=== PATIENT | female | born 1955 | race Caucasian/White ===

== ENCOUNTER 2017-11-02 16:50 | Emergency (ER) | payer OTHER ==
[~2017-11-02] VITALS: Ht 162.6 cm; Wt 51.7 kg
[~2017-11-02 16:50] MED LIST: ALBU8.5H8; ASPI81TA31 PO; COREG PO; DIVA250T4 PO; HYDR-3980; LAMO100T2 PO; LORA-259 PO; PREG100C
--- NOTE | 2017-11-02 20:17 | NUR ---
Patient discharged to home in stable conditon. Written and verbal after care instructions given. Patient verbalizes understanding of instructions.
== END 2017-11-02 20:18 | disposition home or self-care (01) ==
LOC: ER 16:51
DX: S70.12XA Contusion of left thigh, initial encounter (principal); X58.XXXA Exposure to other specified factors, initial encounter; Y93.89 Activity, other specified; Y92.89 Other specified places as the place of occurrence of the external cause; Y99.8 Other external cause status; Z79.82 Long term (current) use of aspirin; Z88.2 Allergy status to sulfonamides; Z95.1 Presence of aortocoronary bypass graft; Z79.899 Other long term (current) drug therapy
CPT/HCPCS: 99281; A4663

== ENCOUNTER 2022-01-21 11:24 | Emergency (ER) | payer MEDICARE, OTHER ==
[~2022-01-21] VITALS: Ht 162.6 cm; Wt 54.4 kg
[2022-01-21 13:05] LABS: *BILIRUBIN,URIN NEGATIVE (NEGATIVE); *BLOOD, URINE NEGATIVE (NEGATIVE); *CLARITY,URINE CLEAR (CLEAR); *COLOR,URINE YELLOW (YELLOW); *KETONES,URINE NEGATIVE (NEGATIVE); *UROBILINOGEN,URINE 0.2 E.U./dl (NORMAL); LEUKOCYTE ESTERASE ,URINE NEGATIVE (NEGATIVE); NITRITE, URINE NEGATIVE (NEGATIVE); UGLUCOSE NEGATIVE (NEGATIVE)
[2022-01-21 13:06] LABS: HEMATOCRIT 40.7 % (31.2-41.9); MEAN CORPUSCULAR HEMOGLOBIN 30.2 uug (24.7-32.8); MEAN CORPUSCULAR VOLUME 91.1 fL (75.5-95.3); PLATELET COUNT (AUTO) 163 K/uL (179-408)
[2022-01-21 13:52] LABS: CREATININE 0.9 mg/dL (0.6-1.3); POTASSIUM 4.4 mmol/L (3.5-5.1)
[2022-01-21 13:58] LABS: BILIRUBIN,TOTAL 0.3 mg/dL (0.2-1.0); TOTAL PROTEIN, SERUM 6.3 g/dL (6.4-8.2)
--- NOTE | 2022-01-21 14:08 | NUR ---
Patient discharged to home in stable condition. Written and verbal after care instructions given. Patient verbalizes understanding of instructions. Stressed follow up or return to ER for worsening s/s.
== END 2022-01-21 14:10 | disposition home or self-care (01) ==
LOC: ER 11:24
DX: S50.11XA Contusion of right forearm, initial encounter (principal); J44.9 Chronic obstructive pulmonary disease, unspecified; Z95.1 Presence of aortocoronary bypass graft; Z88.2 Allergy status to sulfonamides; Z79.82 Long term (current) use of aspirin; Z79.899 Other long term (current) drug therapy; W06.XXXA Fall from bed, initial encounter; Y93.89 Activity, other specified; Y92.89 Other specified places as the place of occurrence of the external cause; Y99.8 Other external cause status
CPT/HCPCS: 36415; 73090; 73110; 85025; 86900; 86901; A4663

== ENCOUNTER 2022-02-16 06:08 | Inpatient (IN) | payer MEDICARE, OTHER ==
[~2022-02-16] VITALS: Ht 162.6 cm; Wt 50.0 kg
--- NOTE | 2022-02-16 06:30 | NUR ---
pt in room 4a states she fell down yesterday and c/o rib pain. Dr. Sood at bedside for MSE. pt with spo2 88 percent placed on 2 liters and then increased to 4 liters nc.
[2022-02-16] MEDS ORDERED: PREG100C PO (06:43)
[2022-02-16] MEDS ORDERED: HYDR-3980 PO (06:43)
[2022-02-16] MEDS ORDERED: ALBU6.7H9 IH (06:43)
[2022-02-16 07:11] LABS: HEMATOCRIT 40.3 % (31.2-41.9); MEAN CORPUSCULAR HEMOGLOBIN 30.3 uug (24.7-32.8); MEAN CORPUSCULAR VOLUME 90.6 fL (75.5-95.3); PLATELET COUNT (AUTO) 186 K/uL (179-408)
[2022-02-16 07:14] LABS: CREATININE 0.8 mg/dL (0.6-1.3); POTASSIUM 3.8 mmol/L (3.5-5.1)
[2022-02-16 07:22] LABS: BILIRUBIN,TOTAL 0.3 mg/dL (0.2-1.0); MAGNESIUM 2.1 mg/dL (1.8-2.4); TOTAL PROTEIN, SERUM 6.3 g/dL (6.4-8.2)
[2022-02-16] MEDS ORDERED: MORPHINE SULFATE 2 MG/1 ML DISP.SYRIN IV ONE (07:45)
[2022-02-16] MEDS ORDERED: KETOROLAC TROMETHAMINE 30 MG INJ IVP ONE (07:45)
[2022-02-16] MEDS ORDERED: KETOROLAC TROMETHAMINE 30 MG INJ ONE (07:50)
[2022-02-16] MEDS ORDERED: MORPHINE SULFATE 2 MG/1 ML DISP.SYRIN ONE (07:51)
--- NOTE | 2022-02-16 08:25 | NUR ---
Pt out of ER for CT scan.
[2022-02-16 08:28] LABS: CREATININE 0.8 mg/dL (0.6-1.3); POTASSIUM 3.8 mmol/L (3.5-5.1)
[2022-02-16 08:34] LABS: BILIRUBIN,DIRECT 0.1 mg/dL (0.0-0.2); BILIRUBIN,TOTAL 0.3 mg/dL (0.2-1.0); TOTAL PROTEIN, SERUM 6.4 g/dL (6.4-8.2)
--- NOTE | 2022-02-16 08:55 | NUR ---
Pt back from Ct scan, states rib pain is better but not gone.
[2022-02-16] MEDS ORDERED: levoFLOXacin 750 MG/D5W 150 ML PIGGYBACK IV ONE (09:30)
[2022-02-16] MEDS ORDERED: levoFLOXacin 750MG/D5W 150 ML IV ONE (09:39)
--- NOTE | 2022-02-16 10:17 | NUR ---
Patient is resting comfortably in bed with eyes closed, NAD noted.
[2022-02-16] MEDS ORDERED: LORAZEPAM 1 MG TABLET PO PRN (11:15)
[2022-02-16] MEDS ORDERED: DIVALPROEX 250 MG TABLET.DR PO ONE (11:51)
[2022-02-16] MEDS: DIVALPROEX 250 MG TABLET.DR PO SCH ×2 (11:56→21:27)
[2022-02-16] MEDS: LAMOTRIGINE 100 MG TABLET PO SCH ×2 (11:56→17:03)
--- NOTE | 2022-02-16 11:59 | NUR ---
Lunch provided, pt is eating, no assisstance needed, HOB elevated to 90 degrees.
[2022-02-16] MEDS ORDERED: PREGABALIN 100 MG CAPSULE ONE ×2 (12:10→17:01)
[2022-02-16] MEDS: PREGABALIN 100 MG CAPSULE PO SCH ×2 (12:13→17:03)
[2022-02-16] MEDS ORDERED: MAGNESIUM HYDROXIDE 30 ML LIQUID UDC PO PRN (13:15)
[2022-02-16] MEDS ORDERED: ONDANSETRON 4 MG/2 ML VIAL IV PRN (13:15)
[2022-02-16] MEDS ORDERED: REMEDY ESSENTIAL ZINC PASTE 113 GM TP PRN (13:15)
[2022-02-16] MEDS ORDERED: ACETAMINOPHEN 325 MG TABLET PO PRN (13:15)
[2022-02-16] MEDS ORDERED: LORAZEPAM 1 MG TABLET ONE (13:17)
--- NOTE | 2022-02-16 13:20 | NUR ---
Pt c/o anxiety, stating takes Ativan.
--- NOTE | 2022-02-16 13:57 | NUR ---
Pt states Ativan worked and not anxious any longer.
[2022-02-16] MEDS: CEFTRIAXONE 2 G in IV DEXTROSE 5% 100 ML IV SCH (14:00)
[2022-02-16] MEDS ORDERED: METRONIDAZOLE 500 MG/NS 100ML 100 ML IV ONE ×3 (14:51→21:27)
[2022-02-16] MEDS: METRONIDAZOLE 500 MG/NS 100ML 500 MG in PREMIXED 1 EACH IV SCH ×2 (14:53→21:33)
[2022-02-16] MEDS ORDERED: HYDROCODONE/APAP 5-325MG TABLET ONE (17:04)
[2022-02-16] MEDS: HYDROCODONE/APAP 5-325MG TABLET PO PRN ×2 (17:06→21:28)
--- NOTE | 2022-02-16 17:06 | NUR ---
Pt c/o Rt rib cage pain and asking to have [place]. [place] 5/325 given per PRN order.
--- NOTE | 2022-02-16 19:15 | NUR ---
Pt transfered to Tele floor room 302.
--- NOTE | 2022-02-16 19:20 | NUR ---
Received pt from er via wheelchair. Under the care of Dr. Gibbs. Dx: Aspiration, Rib fracture, Respiratory failure. Pt awake, alert and orientedx3.Belonging list done. Admission process and care plan initiated. prison assessment done. Seizure precaution done. SAfety and comfort provided.Iv intact. Will continue to monitor.
--- NOTE | 2022-02-16 20:44 | NUR ---
notify Dr. Gibbs regarding pt requesting for Nicotine patch. Dr. Gibbs ordered Nicotine patch TD daily now.
[2022-02-16 21:27] VITALS: BP 155/55
[2022-02-16] MEDS: NICOTINE 21 MG/24HR PATCH TD SCH (21:28)
--- NOTE | 2022-02-16 22:30 | NUR ---
at 2128H [place] 5-325mg prn given to pt for generalized pain. Pt tolerated it well. After 30 minutes pt stated she felt better but there's still pain. Will continue to monitor.
[2022-02-17] MEDS: LORAZEPAM 0.5 MG TABLET PO PRN ×3 (00:38→21:47)
--- NOTE | 2022-02-17 02:00 | NUR ---
at 0038H Ativan prn given to pt for anxiety as per pt request. Pt in no acute distress. Pt tolerated it well. After an hour pt calmer and medication is effective. Will continue to monitor.
[2022-02-17 04:00] VITALS: BP 145/60
[2022-02-17] MEDS: METRONIDAZOLE 500 MG/NS 100ML 500 MG in PREMIXED 1 EACH IV SCH (05:48)
[2022-02-17] MEDS: HYDROCODONE/APAP 5-325MG TABLET PO PRN ×4 (06:23→22:38)
[2022-02-17] MEDS: PANTOPRAZOLE SODIUM 40 MG TABLET.DR PO SCH (06:23)
--- NOTE | 2022-02-17 06:38 | NUR ---
at 0623H norco 5-325prn given to pt for rib cage pain. Pt tolerated it well. Will endorse toincoming nurse.
--- NOTE | 2022-02-17 06:39 | NUR ---
Pt slept intermittently. Pt in no acute distress. Prescribed medication given and pt tolerated it well. Safety and comfort provided.All needs are met.Pt on sinus bradycardia.Pain management needed. Vital signs within normal limit. Will endorse to incoming nurse for continuity of care.
[2022-02-17 06:44] LABS: HEMATOCRIT 37.4 % (31.2-41.9); MEAN CORPUSCULAR HEMOGLOBIN 30.4 uug (24.7-32.8); MEAN CORPUSCULAR VOLUME 90.2 fL (75.5-95.3); PLATELET COUNT (AUTO) 164 K/uL (179-408)
[2022-02-17 07:08] LABS: CREATININE 0.8 mg/dL (0.6-1.3); MAGNESIUM 1.9 mg/dL (1.8-2.4); POTASSIUM 3.5 mmol/L (3.5-5.1)
[2022-02-17] MEDS: PREGABALIN 100 MG CAPSULE PO SCH ×3 (08:34→17:41)
[2022-02-17] MEDS: ASPIRIN 81 MG TAB.CHEW PO SCH (08:34)
[2022-02-17] MEDS: LAMOTRIGINE 100 MG TABLET PO SCH ×3 (08:34→17:42)
[2022-02-17] MEDS: NICOTINE 21 MG/24HR PATCH TD SCH (08:34)
[2022-02-17] MEDS: DIVALPROEX 250 MG TABLET.DR PO SCH ×2 (08:34→17:42)
--- NOTE | 2022-02-17 09:30 | NUR ---
PATIENT REQUESTING FOR A LANDA STATED ITS DIFFICULT FOR HER TO GET OUT OF BED TO USE THE COMMODE AND HAS LOTS OF PAIN IN THE PROCESS DR MARIANO ADAN NOTIFIED WITH [facility] TO INSERT A CATHETER INSERTED GAUGE 16 AND CONNECTED TO GRAVITY DRAINAGE AT THIS TIME.
--- NOTE | 2022-02-17 09:56 | NUR ---
DR VALENCIA HERE SEEN PATIENT WITH NEW ORDERS AND NOTED
--- NOTE | 2022-02-17 10:17 | NUR ---
PATIENT STATED THAT SHE CANNOT BREATH CHECKED O2 SAT AND ITS AT 91 PERCENT O2 STARTED AT 2L/M BY NASAL CANULA AND SAT IS AT 94 AND SHE STILL C/O UNABLE TO BREATH O2 INCREASED TO 3L/M INCENTIVE SPIROMETER GIVEN AND INSTRUCTED ORDERED RESPIRATORY AT THE BEDSIDE TO DRAW ABG AND GIVE HER THE HAND HELD NEBULIZER ORDERED WILL CONTINUE TO OBSERVE.
--- NOTE | 2022-02-17 10:21 | NUR ---
PATIENT SEEN AND EXAMINED BY EPIFANIO ARCHIVAL STUDIES PROFESSOR WITH NEW ORDERS AND NOTED
[2022-02-17 10:25] LABS: ABG BASE EXCESS 1.9 mmol/L; ABG HCO3 25.9 mmol/L; ABG PCO2 38.5 mmHg (35.0-45.0); ABG PH 7.445 (7.350-7.450); ABG PO2 46.1 mmHg (75.0-100.0); ABG SITE RIGHT RADIAL; ABG TOTAL HEMOGLOBIN 14.1 G/dL (12.0-16.0); COHb 1.4 % (0.5-1.5); MetHb 0.1 % (0.0-1.5); O2Hb 84.2 % (94.0-97.0); VENT MODE RA
--- NOTE | 2022-02-17 10:40 | NUR ---
PATIENT CALLED ME INTO THE ROOM AND STATED THAT SHE WAS HAVING SEIZURES OBSERVED HER FOR A SECOND NO SEIZURES NOTED PATIENT IS TALKING IS HER USUAL SELF STATED THAT HER TYPE OF SEIZURE IS CALLED SENSATIONAL SEIZURES AND THAT ONLY HER CAN FEEL AND HER SYMPTOMS ARE GREAT SADNESS AND THE FEELING THAT THE BUILDING IS FALLING ON TOP OF HER STATED ALSO THAT SHE HAD BRAIN SURGERY WITH HER RIGHT TEMPORAL LOBE REMOVED DR MARIANO ADAN NOTIFIED.
[2022-02-17] MEDS: LIDOCAINE 5% PATCH TD SCH (10:51)
[2022-02-17] MEDS: ALBUTEROL SULFATE 2.5 MG/3 ML NEBU NEB SCH ×3 (11:11→19:10)
[2022-02-17] MEDS: IPRATROPIUM BROMIDE 0.5 MG/2.5 ML NEBU NEB SCH ×3 (11:11→19:10)
[2022-02-17 11:30] VITALS: BP 130/58
--- NOTE | 2022-02-17 11:30 | NUR ---
MID LINE INSERTED TO HER LEFT UPPER ARM SHE IS A HARD STICK AND HER PREVIOUS SITE IS VERY POSITIONAL AND ITS A GAUGE 22 TOLERATED WELL
--- NOTE | 2022-02-17 12:26 | NUR ---
Social work consult was requested for a patient on medsurg for eval of safe home environment. Patient is 66-year-old white female admitted to the hospital for pneumonia. Upon elementary school social worker assessment, patient is alert and oriented X4. Patient presents with congruent mood and full range affect. Patient presents with coherent and goal directed thought process. Patient presents with good judgement and insight. Patient lives in a three-story house in [place]. SW explored patients support system. Patient lives with her adult son, Darek ([phone]), his , their 3-year-old son, and her ex-. She is in good relations with them. Patient is independent at home with her ADLs. Patient has a walker at home. Patient is currently not driving. Patient states that her sister, Tad, ([phone]) drives her and is her distribution center assistant. Patient is retired from working as an ER nurse for 20 years. Patient denies history of substance abuse. Patient states that she quit smoking cannabis 3 weeks ago. Patient denies history of psychiatric diagnosis. Patient denies suicidal or homicidal ideation. Patient states that her sister, Tad ([phone]) will drive her home at discharge.
[2022-02-17] MEDS: METRONIDAZOLE 500 MG TABLET PO SCH ×2 (14:33→21:47)
[2022-02-17] MEDS: CEFTRIAXONE 2 G in IV DEXTROSE 5% 100 ML IV SCH (14:33)
[2022-02-17] MEDS ORDERED: HYDR-4209 PO (15:34)
[2022-02-17 16:00] VITALS: BP 104/43
--- NOTE | 2022-02-17 17:58 | NUR ---
[facility]SA SWAB URINE SAMPLES COLLECTED AND SENT TO THE LAB ORDERED.MEDICATED WITH NORCO FOR PAIN ORDERED WILL CONTINUE TO OBSERVE.
--- NOTE | 2022-02-17 19:30 | NUR ---
Received pt awake, alert and orientedx2. Pt in no acute distress. Pt on nasal cannula. Iv intact. Safety and comfort provided. Will continue to monitor.
[2022-02-17 20:00] VITALS: BP 119/52
--- NOTE | 2022-02-17 21:48 | NUR ---
notify regarding pt wants Lipitor 40 mg HS. didn't give the pt request as the pt has low cholesterol . Update the pt regarding her Lipitor request.
--- NOTE | 2022-02-17 22:30 | NUR ---
at 2147H Ativan 0.5mg prn given to pt for restlessness and anxiety. Tylenol 650 mg prn given for pain. After 30 minutes pt calmer.
--- NOTE | 2022-02-17 23:00 | NUR ---
at 2238H [place] 5-325mg 1 tab given to pt for 7/10 pain scale. Pt tolerated it well. After 30 minutes pt stated it hurts but better. Will continue to monitor.
--- NOTE | 2022-02-17 23:08 | NUR ---
PT SLEEPING. NO SOB NOTED
--- NOTE | 2022-02-17 23:30 | NUR ---
Pt sometimes forgetful and needs reorientation. Will continue to monitor.
[2022-02-18] VITALS: BP 125/64
[2022-02-18 04:00] VITALS: BP 119/53
[2022-02-18] MEDS: HYDROCODONE/APAP 5-325MG TABLET PO PRN ×5 (05:02→21:41)
[2022-02-18] MEDS: METRONIDAZOLE 500 MG TABLET PO SCH ×3 (05:04→21:41)
[2022-02-18] MEDS: PANTOPRAZOLE SODIUM 40 MG TABLET.DR PO SCH (06:13)
--- NOTE | 2022-02-18 06:31 | NUR ---
Pt slept intermittently. Pt offered several times to be turn and repositioned but pt refused. Educated pt on benefits to be turn and repositioned.Pt iv intact. Pt on 2l nasal cannula at 95%. Pt on sinus rhythm. Safety and comfort provided. Pt needs reorientation. Pt several times is asking for her Lipitor medication explained to her the reason why the Dr didn't order it for her. Vital signs stable.Will endorse to incoming nurse for continuity of care.
--- NOTE | 2022-02-18 06:31 | NUR ---
[place] 1 tab prn given to pt on 0502H. Pt tolerated it well. After an hour pt stated it felt better but there's still pain. Will continue to monitor.
[2022-02-18 06:54] LABS: CREATININE 0.8 mg/dL (0.6-1.3); MAGNESIUM 2.2 mg/dL (1.8-2.4); PHOSPHOROUS 3.7 mg/dL (2.5-4.9); POTASSIUM 3.8 mmol/L (3.5-5.1)
[2022-02-18 07:02] LABS: HEMATOCRIT 36.9 % (31.2-41.9); MEAN CORPUSCULAR HEMOGLOBIN 30.3 uug (24.7-32.8); MEAN CORPUSCULAR VOLUME 90.3 fL (75.5-95.3); PLATELET COUNT (AUTO) 166 K/uL (179-408)
[2022-02-18] MEDS: ALBUTEROL SULFATE 2.5 MG/3 ML NEBU NEB SCH ×4 (07:37→19:39)
[2022-02-18] MEDS: IPRATROPIUM BROMIDE 0.5 MG/2.5 ML NEBU NEB SCH ×4 (07:37→19:39)
[2022-02-18] MEDS: ASPIRIN 81 MG TAB.CHEW PO SCH (08:24)
[2022-02-18] MEDS: NICOTINE 21 MG/24HR PATCH TD SCH (08:25)
[2022-02-18] MEDS: DIVALPROEX 250 MG TABLET.DR PO SCH ×2 (08:25→16:59)
[2022-02-18] MEDS: PREGABALIN 100 MG CAPSULE PO SCH ×3 (08:25→16:59)
[2022-02-18] MEDS: LIDOCAINE 5% PATCH TD SCH (08:25)
[2022-02-18] MEDS: LAMOTRIGINE 100 MG TABLET PO SCH ×3 (08:25→16:59)
--- NOTE | 2022-02-18 08:45 | NUR ---
AWAKE ALERT AND VERBALLY RESPONSIVE SEEMS TO BE FORGETFUL AT TIMES FOR EXAMPLE SHE RECEIVED ALL HER ROUTINE MEDICATIONS AT 0845 BUT DID TELL THE DOCTOR THAT SHE IS STILL WAITING TO GET HER MORNING MEDS PATIENT SEEN AND EXAMINED BY DR VALENCIA WITH NO NEW ORDERS SEEN AT THIS TIME NO SEIZURE ACTIVITIES REMAIN ON O2 WITH ADEQUATE SATS CALL LIGHTS AND HER PERSONAL BELONGINGS ARE WITHIN EASY REACH WILL CONTINUE TO OBSERVE.
[2022-02-18] MEDS: LORAZEPAM 0.5 MG TABLET PO PRN (11:23)
[2022-02-18 11:28] VITALS: BP 105/54
[2022-02-18] MEDS: CEFTRIAXONE 2 G in IV DEXTROSE 5% 100 ML IV SCH (13:16)
--- NOTE | 2022-02-18 14:00 | NUR ---
PATIENT CALLED TO THE NURSES STATION AND STATED THAT SHE HAD WIPED HER FACE WITH A LIQUID IN HER CUP SHE THOUGHT WAS WATER BUT IT WAS ACTUALLY BUILDING MAINTENANCE TECHNICIAN AND WANTED HER EYES CHECKED,HER EYES WAS CLEAR NO REDNESS OR DRAINGE CLEANSED AND FLUSHED WITH SALINE PATIENT DENIES BURNING OR DISCOMFORTS AT THIS TIME WILL CONTINUE TO OBSERVE.
[2022-02-18 15:50] VITALS: BP 136/67
[2022-02-18 17:18] LABS: ABG BASE EXCESS 2.9 mmol/L; ABG HCO3 26.2 mmol/L; ABG PCO2 35.7 mmHg (35.0-45.0); ABG PH 7.483 (7.350-7.450); ABG PO2 52.3 mmHg (75.0-100.0); ABG SITE RIGHT RADIAL; ABG TOTAL HEMOGLOBIN 13.8 G/dL (12.0-16.0); COHb 0.5 % (0.5-1.5); MetHb 0.3 % (0.0-1.5); O2Hb 89.7 % (94.0-97.0); VENT MODE Room Air
[2022-02-18] MEDS: ENSURE WITH FIBER 237 ML LIQUID (CHOCOLATE) PO SCH (17:59)
--- NOTE | 2022-02-18 18:05 | NUR ---
PATIENT HAS REQUESTED FOR NORCO EVERY 4 HOURS AND HAS RECEIVED THEM PER HER REQUEST AND SHE INSISTS THAT SHE SHOULD GET THEM ROUTINELY CONTINUES TO BE ALERT AND ORIENTED BUT FORGETFUL TOTALLY DEPENDENT MAX ASSIST FOR ALL ADL MADE COMFORTABLE WILL OBSERVE.
--- NOTE | 2022-02-18 19:30 | NUR ---
Received pt awake, alert and orientedx2. Pt in no acute distress. Pt on nasal cannula on 2l . Iv intact. Safety and comfort provided. Will continue to monitor.
[2022-02-18 20:31] VITALS: BP 117/56
[2022-02-18] MEDS ORDERED: ATORVASTATIN 20 MG TABLET PO SCH (21:00)
--- NOTE | 2022-02-18 23:00 | NUR ---
Pt given norco 1 tab prn at 2141H for generalized pain. After an hour pt pain subsided as per pt.Pt tolerated it well. Will continue to monitor.
[2022-02-19 00:13] VITALS: BP 132/62
[2022-02-19 04:38] VITALS: BP 99/52
[2022-02-19] MEDS: METRONIDAZOLE 500 MG TABLET PO SCH ×2 (05:56→13:16)
[2022-02-19] MEDS: HYDROCODONE/APAP 5-325MG TABLET PO PRN ×3 (05:56→14:21)
[2022-02-19] MEDS: PANTOPRAZOLE SODIUM 40 MG TABLET.DR PO SCH (06:00)
--- NOTE | 2022-02-19 06:08 | NUR ---
Pt given [place] at 0556H for 7/10 generalized pain. Pt in no acute distress. Iv intact. [place]gs catheter intact and draining well. Pt have episodes of yelling, screaming., calling her mama. Needs reorientation. Safety and comfort provided.All needs are met. Will endorse to incoming nurse for continuity of care.
--- NOTE | 2022-02-19 06:15 | NUR ---
Pt on sinus rhythm.
[2022-02-19] MEDS: IPRATROPIUM BROMIDE 0.5 MG/2.5 ML NEBU NEB SCH ×3 (08:02→14:48)
[2022-02-19] MEDS: ALBUTEROL SULFATE 2.5 MG/3 ML NEBU NEB SCH ×3 (08:02→14:48)
[2022-02-19] MEDS: DIVALPROEX 250 MG TABLET.DR PO SCH ×2 (09:51→17:54)
[2022-02-19] MEDS: ENSURE WITH FIBER 237 ML LIQUID (CHOCOLATE) PO SCH ×2 (09:51→17:55)
[2022-02-19] MEDS: ASPIRIN 81 MG TAB.CHEW PO SCH (09:51)
[2022-02-19] MEDS: LAMOTRIGINE 100 MG TABLET PO SCH ×3 (09:51→17:54)
[2022-02-19] MEDS: NICOTINE 21 MG/24HR PATCH TD SCH (09:51)
[2022-02-19] MEDS: PREGABALIN 100 MG CAPSULE PO SCH ×3 (09:51→17:54)
[2022-02-19] MEDS: LIDOCAINE 5% PATCH TD SCH (09:51)
[2022-02-19 11:30] VITALS: BP 105/56
--- NOTE | 2022-02-19 12:00 | NUR ---
Pt dumont catheter discontinued. Will monitor for urination. Pt is a/o x 4, requesting [place] PRN Q4 and ativan. Comfort measures provided, call light within reach.
[2022-02-19] MEDS: CEFTRIAXONE 2 G in IV DEXTROSE 5% 100 ML IV SCH (13:17)
[2022-02-19 13:30] LABS: *BILIRUBIN,URIN NEGATIVE (NEGATIVE); *BLOOD, URINE 1+ (NEGATIVE); *CLARITY,URINE CLEAR (CLEAR); *COLOR,URINE YELLOW (YELLOW); *KETONES,URINE NEGATIVE (NEGATIVE); *UROBILINOGEN,URINE 0.2 E.U./dl (NORMAL); LEUKOCYTE ESTERASE ,URINE NEGATIVE (NEGATIVE); NITRITE, URINE NEGATIVE (NEGATIVE); UGLUCOSE NEGATIVE (NEGATIVE)
[2022-02-19] MEDS ORDERED: ATOR20TA PO (13:54)
[2022-02-19] MEDS ORDERED: LIDO30AD10 TD (13:54)
[2022-02-19] MEDS ORDERED: HYDR-3972 PO (13:54)
[2022-02-19] MEDS ORDERED: NICO-780 TD (13:54)
[2022-02-19] MEDS ORDERED: METR500T PO (13:54)
[2022-02-19 14:05] LABS: BACTERIA,URINE NONE SEEN /HPF (NONE SEEN); RBC,URINE 0-3 /HPF (0-3); WBC,URINE NONE SEEN /HPF (0-3)
[2022-02-19 14:06] LABS: SQUAMOUS EPITHELIAL CELL,UR FEW /HPF (NONE SEEN)
[2022-02-19] MEDS: LORAZEPAM 0.5 MG TABLET PO PRN (14:21)
[2022-02-19 16:00] VITALS: BP 115/57
--- NOTE | 2022-02-19 17:55 | NUR ---
Pt is being discharged from telemetry to [facility]. Pt is aware and agreeable to enter rehab program. All discharge education provided, all personal belongings in place. No signs of acute distress. Pt urinated post dumont removal. Comfort measures provided.
[2022-02-19 20:06] VITALS: BP 122/48
[2022-02-20 04:22] VITALS: BP 114/54
== END 2022-02-19 18:44 | DRG 183 ==
LOC: ER 06:12 → TRANSITION 11:04 → TELE3 19:07
PROVIDERS: ADMIT Nurse Practitioner Family; ATTEND Nurse Practitioner Acute Care
PROC: 05H633Z Insertion of Infusion Device into Left Subclavian Vein, Percutaneous Approach (ICD-10-PCS; principal; 2022-02-17)
PROC: B547ZZA Ultrasonography of Left Subclavian Vein, Guidance (ICD-10-PCS; 2022-02-17)
DX: S22.41XA Multiple fractures of ribs, right side, initial encounter for closed fracture (principal); J69.0 Pneumonitis due to inhalation of food and vomit; J96.01 Acute respiratory failure with hypoxia; E44.1 Mild protein-calorie malnutrition; R64 Cachexia; J44.0 Chronic obstructive pulmonary disease with (acute) lower respiratory infection; J98.11 Atelectasis; M48.54XA Collapsed vertebra, not elsewhere classified, thoracic region, initial encounter for fracture; Z68.1 Body mass index [BMI] 19.9 or less, adult; W18.30XA Fall on same level, unspecified, initial encounter; D69.6 Thrombocytopenia, unspecified; E88.09 Other disorders of plasma-protein metabolism, not elsewhere classified; F41.9 Anxiety disorder, unspecified; G40.909 Epilepsy, unspecified, not intractable, without status epilepticus; G62.9 Polyneuropathy, unspecified; G89.29 Other chronic pain; I25.10 Atherosclerotic heart disease of native coronary artery without angina pectoris; Z20.822 Contact with and (suspected) exposure to COVID-19; Z79.82 Long term (current) use of aspirin; Z87.891 Personal history of nicotine dependence; Z90.49 Acquired absence of other specified parts of digestive tract; Z88.2 Allergy status to sulfonamides; Z95.1 Presence of aortocoronary bypass graft; R13.10 Dysphagia, unspecified; R29.6 Repeated falls; I25.2 Old myocardial infarction; H26.9 Unspecified cataract; I10 Essential (primary) hypertension; Y93.9 Activity, unspecified; Y92.009 Unspecified place in unspecified non-institutional (private) residence as the place of occurrence of the external cause
CPT/HCPCS: 36415; 36600; 51702; 70360; 70450; 71045; 71101; 71250; 72125; 72131; 80164; 83605; 83735; 84100; 85025; 86803; 87040; 87086; 87806; 93005; 94640; 94664; 97161; A4663; C1758; G0378; J0696; J1885; J1956; J2270; J3490; J3590; J7040

== ENCOUNTER 2022-02-19 19:12 | Inpatient (IN) | payer MEDICARE, OTHER ==
[~2022-02-19] VITALS: Ht 162.6 cm; Wt 50.3 kg
[~2022-02-19 19:12] MED LIST changes: +ALBU6.7H9 IH; -ALBU8.5H8; +ATOR20TA PO; -COREG PO; +HYDR-3972 PO; -HYDR-3980; +HYDR-4209 PO; +LIDO30AD10 TD; +METR500T PO; +NICO-780 TD; -PREG100C; +PREG100C PO
--- NOTE | 2022-02-19 19:25 | NUR ---
Admission report received from AM nurse. Patient awake, alert and oriented x 4, in bed, in no apparent distress with continuous O2 at 2L/min via NC saturating 96% at this time. Denies any pain/discomforts at this time. Able to turn/repositioned self with slow and limited mobility, Safety measures and fall precaution initiated. Oriented to room, call lights, TV remote control, bed control and safety. Routine admission care done. Plan of care initiated. VS taken and recorded.
[2022-02-19 20:00] VITALS: BP 122/42
--- NOTE | 2022-02-19 20:50 | NUR ---
Textramón Rodriguez for patient's medication reconciliation.
[2022-02-19] MEDS: REMEDY ESSENTIAL ZINC PASTE 113 GM TOP SCH (21:08)
[2022-02-20] MEDS: OXYCODONE HCL 5 MG TABLET PO PRN ×3 (02:59→15:53)
--- NOTE | 2022-02-20 06:11 | NUR ---
Shift End report: Medicated once with OxyIR as ordered for pain with relief. No further complaint presented. All needs attended and met. No significant event reported all night.
--- NOTE | 2022-02-20 06:18 | NUR ---
Maykel Rodriguez did not reconcile patients medication yet up to this time. Nursing supervisor press room/Charge nurse aware. Will endorse to oncoming nurse accordingly.
--- NOTE | 2022-02-20 07:07 | NUR ---
USED CAR RENOVATOR/patient reported that she did not urinate the whole night. Bladder scan performed= 349 cc urine retention noted. Will endorse to oncoming nurse.
[2022-02-20 08:38] VITALS: BP 116/55
[2022-02-20] MEDS: REMEDY ESSENTIAL ZINC PASTE 113 GM TOP SCH ×2 (09:38→20:20)
[2022-02-20] MEDS ORDERED: HYDROCODONE/APAP 5-325MG TABLET PO PRN (10:15)
[2022-02-20] MEDS: ASPIRIN 81 MG TAB.CHEW PO SCH (10:39)
[2022-02-20] MEDS: PREGABALIN 100 MG CAPSULE PO SCH ×3 (10:39→20:20)
[2022-02-20] MEDS: DIVALPROEX 250 MG TABLET.DR PO SCH ×2 (10:40→20:21)
[2022-02-20] MEDS: METRONIDAZOLE 500 MG TABLET PO SCH ×3 (10:40→21:24)
[2022-02-20] MEDS: LAMOTRIGINE 100 MG TABLET PO SCH ×3 (10:40→20:21)
[2022-02-20] MEDS: NICOTINE 21 MG/24HR PATCH TD SCH (10:41)
[2022-02-20] MEDS: LIDOCAINE 5% PATCH TD SCH (10:41)
[2022-02-20] MEDS: ALBUTEROL SULFATE 2.5 MG/3 ML NEBU NEB PRN ×2 (11:03→20:48)
[2022-02-20] MEDS: HYDROCODONE/APAP 5-325MG TABLET PO PRN (11:41)
--- NOTE | 2022-02-20 15:57 | NUR ---
Received Pt resting in bed AAO x 4 able to let her needs known. Respirations even and unlabored O2 via NC at 2 liters tolerated well O 2 sat 97 %. Incontinent of bowel and bladder, able to void without difficulty. Up with PT in a W/C. Medicated for pain with [place] and once with OxyIR as ordered with relief. All needs attended and met. PT had Bilateral lower extremitas arterial Doppler event was reported .
[2022-02-20 16:04] VITALS: BP 100/41
[2022-02-20] MEDS: LORAZEPAM 1 MG TABLET PO PRN (18:12)
[2022-02-20 20:00] VITALS: BP 130/62
[2022-02-20] MEDS: ATORVASTATIN 20 MG TABLET PO SCH (20:20)
[2022-02-21] MEDS: HYDROCODONE/APAP 5-325MG TABLET PO PRN ×4 (03:22→21:59)
[2022-02-21 04:00] VITALS: BP 119/56
--- NOTE | 2022-02-21 06:01 | NUR ---
Shift End report: Slept good, medicated twice for pain, quite needy and demanding. All needs attended and met. No significant event reported all night. Continue current rehab plan of care.
[2022-02-21 08:20] VITALS: BP 149/62
[2022-02-21] MEDS: DIVALPROEX 250 MG TABLET.DR PO SCH ×2 (08:55→17:23)
[2022-02-21] MEDS: LAMOTRIGINE 100 MG TABLET PO SCH ×3 (08:55→17:23)
[2022-02-21] MEDS: PREGABALIN 100 MG CAPSULE PO SCH ×3 (08:56→17:23)
[2022-02-21] MEDS: NICOTINE 21 MG/24HR PATCH TD SCH (08:56)
[2022-02-21] MEDS: ASPIRIN 81 MG TAB.CHEW PO SCH (08:56)
[2022-02-21] MEDS: LIDOCAINE 5% PATCH TD SCH (08:56)
[2022-02-21] MEDS: REMEDY ESSENTIAL ZINC PASTE 113 GM TOP SCH ×2 (08:57→20:12)
[2022-02-21] MEDS: ENSURE WITH FIBER 237 ML LIQUID (CHOCOLATE) PO SCH ×3 (14:07→17:23)
[2022-02-21] MEDS: LORAZEPAM 1 MG TABLET PO PRN ×2 (14:16→20:53)
[2022-02-21] MEDS: ALBUTEROL SULFATE 2.5 MG/3 ML NEBU NEB PRN (15:18)
[2022-02-21 16:22] VITALS: BP 135/71
--- NOTE | 2022-02-21 19:45 | NUR ---
Received patient in bed awake, alert and oriented x 4. No respiratory distress noted. No c/o pain at this time. Teachings provided. Call light within easy reach and instructed. Needs attended and anticipated.
[2022-02-21 20:06] VITALS: BP 109/53
[2022-02-21] MEDS: ATORVASTATIN 20 MG TABLET PO SCH (20:12)
[2022-02-22] MEDS: ALBUTEROL SULFATE 2.5 MG/3 ML NEBU NEB PRN ×3 (00:49→19:45)
[2022-02-22 04:54] VITALS: BP 95/55
--- NOTE | 2022-02-22 06:49 | NUR ---
Patient slept well, easy to arouse. No noted acute distress. Medicated for pain with good effect. Needs attended and anticipated.
[2022-02-22] MEDS: PREGABALIN 100 MG CAPSULE PO SCH ×3 (07:55→16:42)
[2022-02-22 08:00] VITALS: BP 120/52
--- NOTE | 2022-02-22 08:02 | NUR ---
INDIVIDUALIZED PLAN OF CARE
[2022-02-22] MEDS: OXYCODONE HCL 5 MG TABLET PO PRN ×3 (08:17→16:42)
[2022-02-22] MEDS: LORAZEPAM 1 MG TABLET PO PRN ×2 (08:18→16:43)
[2022-02-22] MEDS: LAMOTRIGINE 100 MG TABLET PO SCH ×3 (08:18→16:42)
[2022-02-22] MEDS: ASPIRIN 81 MG TAB.CHEW PO SCH (08:18)
[2022-02-22] MEDS: NICOTINE 21 MG/24HR PATCH TD SCH (08:18)
[2022-02-22] MEDS: DIVALPROEX 250 MG TABLET.DR PO SCH ×2 (08:18→16:42)
[2022-02-22] MEDS: ENSURE WITH FIBER 237 ML LIQUID (CHOCOLATE) PO SCH ×3 (08:19→16:43)
[2022-02-22] MEDS: REMEDY ESSENTIAL ZINC PASTE 113 GM TOP SCH ×2 (08:20→20:10)
[2022-02-22] MEDS: LIDOCAINE 5% PATCH TD SCH (08:20)
[2022-02-22 15:01] VITALS: BP 101/54
[2022-02-22] MEDS: ATORVASTATIN 20 MG TABLET PO SCH (20:09)
[2022-02-22 20:15] VITALS: BP 133/56
--- NOTE | 2022-02-22 20:20 | NUR ---
Received pt awake sitting on w/c, she is alert and oriented x4 able to make needs known. On O2 at 2lpm via NC, no respiratory distress noted. Snacks provided. Denies pain and discomfort at this time. Due medication given. All needs attended. Call light placed within reach. Will continue to monitor.
[2022-02-23 04:25] VITALS: BP 104/52
[2022-02-23] MEDS: OXYCODONE HCL 5 MG TABLET PO PRN ×3 (07:03→20:42)
[2022-02-23 08:00] VITALS: BP 115/52
[2022-02-23] MEDS: PREGABALIN 100 MG CAPSULE PO SCH ×3 (08:30→15:40)
[2022-02-23] MEDS: LAMOTRIGINE 100 MG TABLET PO SCH ×3 (08:34→15:40)
[2022-02-23] MEDS: NICOTINE 21 MG/24HR PATCH TD SCH (08:34)
[2022-02-23] MEDS: DIVALPROEX 250 MG TABLET.DR PO SCH ×3 (08:34→18:43)
[2022-02-23] MEDS: ENSURE WITH FIBER 237 ML LIQUID (CHOCOLATE) PO SCH ×3 (08:34→17:36)
[2022-02-23] MEDS: REMEDY ESSENTIAL ZINC PASTE 113 GM TOP SCH ×2 (08:34→20:40)
[2022-02-23] MEDS: ASPIRIN 81 MG TAB.CHEW PO SCH (08:34)
[2022-02-23] MEDS: LIDOCAINE 5% PATCH TD SCH (08:34)
[2022-02-23] MEDS: ALBUTEROL SULFATE 2.5 MG/3 ML NEBU NEB PRN (09:59)
[2022-02-23 11:54] VITALS: BP 132/93
[2022-02-23] MEDS: LORAZEPAM 1 MG TABLET PO PRN ×2 (15:39→23:25)
[2022-02-23 16:39] VITALS: BP 113/55
[2022-02-23 20:40] VITALS: BP 119/53
[2022-02-23] MEDS: ATORVASTATIN 20 MG TABLET PO SCH (20:40)
[2022-02-24] MEDS: ALBUTEROL SULFATE 2.5 MG/3 ML NEBU NEB PRN (00:15)
[2022-02-24] MEDS: OXYCODONE HCL 5 MG TABLET PO PRN ×3 (03:37→17:49)
[2022-02-24 04:45] VITALS: BP 102/51
[2022-02-24 07:30] VITALS: BP 99/46
[2022-02-24] MEDS: DIVALPROEX 250 MG TABLET.DR PO SCH ×2 (08:04→16:10)
[2022-02-24] MEDS: ASPIRIN 81 MG TAB.CHEW PO SCH (08:04)
[2022-02-24] MEDS: LAMOTRIGINE 100 MG TABLET PO SCH ×3 (08:04→16:10)
[2022-02-24] MEDS: ENSURE WITH FIBER 237 ML LIQUID (CHOCOLATE) PO SCH ×3 (08:05→16:11)
[2022-02-24] MEDS: NICOTINE 21 MG/24HR PATCH TD SCH (08:06)
[2022-02-24] MEDS: LIDOCAINE 5% PATCH TD SCH (08:06)
[2022-02-24] MEDS: REMEDY ESSENTIAL ZINC PASTE 113 GM TOP SCH ×2 (08:06→20:54)
[2022-02-24] MEDS: PREGABALIN 100 MG CAPSULE PO SCH ×3 (08:14→16:10)
[2022-02-24] MEDS: LORAZEPAM 1 MG TABLET PO PRN (14:46)
[2022-02-24 16:00] VITALS: BP 117/52
[2022-02-24 20:00] VITALS: BP 127/53
--- NOTE | 2022-02-24 20:00 | NUR ---
RECEIVED PATIENT AWAKE IN BED, WITH VISITOR AT BEDSIDE. PATIENT IS A/O X4. DENIES PAIN AT THIS TIME. NO RESP. DISTRESS NOTED. VS WNL. CALL LIGHT IN REACH. ALL NEEDS ATTENDED. WILL CONTINUE TO MONITOR AND ASSESS.
[2022-02-24] MEDS: ATORVASTATIN 20 MG TABLET PO SCH (20:54)
[2022-02-25 04:00] VITALS: BP 140/53
[2022-02-25 08:00] VITALS: BP 106/36
[2022-02-25] MEDS: ENSURE WITH FIBER 237 ML LIQUID (CHOCOLATE) PO SCH ×3 (08:44→16:47)
[2022-02-25] MEDS: LAMOTRIGINE 100 MG TABLET PO SCH ×3 (08:44→16:46)
[2022-02-25] MEDS: ASPIRIN 81 MG TAB.CHEW PO SCH (08:44)
[2022-02-25] MEDS: DIVALPROEX 250 MG TABLET.DR PO SCH ×2 (08:44→16:46)
[2022-02-25] MEDS: PREGABALIN 100 MG CAPSULE PO SCH ×3 (08:44→16:46)
[2022-02-25] MEDS: LIDOCAINE 5% PATCH TD SCH (08:45)
[2022-02-25] MEDS: REMEDY ESSENTIAL ZINC PASTE 113 GM TOP SCH ×2 (08:45→20:49)
[2022-02-25] MEDS: NICOTINE 21 MG/24HR PATCH TD SCH (08:45)
[2022-02-25] MEDS: OXYCODONE HCL 5 MG TABLET PO PRN ×2 (09:31→20:48)
[2022-02-25] MEDS: ALBUTEROL SULFATE 2.5 MG/3 ML NEBU NEB PRN (14:07)
[2022-02-25 16:00] VITALS: BP 111/48
[2022-02-25] MEDS: LORAZEPAM 1 MG TABLET PO PRN (16:52)
--- NOTE | 2022-02-25 17:41 | NUR ---
patient was calling the station many times and yelling for her evening medications around 1630, even upon taking to patient that this card writer hand is going to bring the medications now, patient kept yelling and screaming, using inappropriate words toward staff. patient is very upset about her food, called kitchen and let them know about patient choices.
--- NOTE | 2022-02-25 18:54 | NUR ---
patient's son is here, had extensive conversation with son and patient, answered questions appropriately, patient son would like to change oxy IR to [place], patient agreed with this too, will folow up with MD. patient son requested to cut down on ativan, however patient did not agree to it, patient is concerned about her feet, and wanted to see vascular surgeon, pedal pulses are intact, no swelling noted, no redness noted, capillary refil is less than 3 second, will follow up with MD in am.
--- NOTE | 2022-02-25 19:00 | NUR ---
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
--- NOTE | 2022-02-25 19:30 | NUR ---
Awake upon initial rounds. AAOx4 All needs attended. VSS No acute distress noted. OOB to the BR with assist. BM noted this shift. Patient incontinent/continent at times. Medicated for pain as needed. Will monitor patient.Fall precautions maintained.
[2022-02-25 20:39] VITALS: BP 118/48
[2022-02-25] MEDS: ATORVASTATIN 20 MG TABLET PO SCH (20:49)
[2022-02-26] MEDS: OXYCODONE HCL 5 MG TABLET PO PRN ×2 (03:56→23:13)
[2022-02-26 04:00] VITALS: BP 100/79
[2022-02-26] MEDS: ALBUTEROL SULFATE 2.5 MG/3 ML NEBU NEB PRN (05:54)
[2022-02-26 08:00] VITALS: BP 94/47
[2022-02-26] MEDS: ENSURE WITH FIBER 237 ML LIQUID (CHOCOLATE) PO SCH ×3 (08:00→16:02)
[2022-02-26] MEDS: PREGABALIN 100 MG CAPSULE PO SCH ×3 (08:00→16:02)
[2022-02-26] MEDS: ASPIRIN 81 MG TAB.CHEW PO SCH (08:00)
[2022-02-26] MEDS: LAMOTRIGINE 100 MG TABLET PO SCH ×3 (08:00→16:01)
[2022-02-26] MEDS: DIVALPROEX 250 MG TABLET.DR PO SCH ×2 (08:00→16:02)
[2022-02-26] MEDS: REMEDY ESSENTIAL ZINC PASTE 113 GM TOP SCH ×2 (08:01→20:24)
[2022-02-26] MEDS: NICOTINE 21 MG/24HR PATCH TD SCH (08:01)
--- NOTE | 2022-02-26 15:15 | NUR ---
INTERDISCIPLINARY TEAM CONFERENCE
[2022-02-26 15:54] VITALS: BP 112/54
--- NOTE | 2022-02-26 17:48 | NUR ---
no distress noted, patient is awake, alert x4, able to make her needs known, kept comfortable.
--- NOTE | 2022-02-26 19:15 | NUR ---
Received patient on bed, awake, alert x4, not in respiratory distress, no complaint of pain, in calm behavior. Safety precautions provided, call light placed within reach.
[2022-02-26] MEDS: ATORVASTATIN 20 MG TABLET PO SCH (20:24)
[2022-02-26 20:34] VITALS: BP 138/75
[2022-02-26] MEDS: LORAZEPAM 1 MG TABLET PO PRN (21:55)
[2022-02-27 04:15] VITALS: BP 105/51
--- NOTE | 2022-02-27 06:30 | NUR ---
Slept intermittently, requested for Ativan and oxycodone, in calm behavior, not in respiratory distress, Vitally stable.
[2022-02-27 07:00] LABS: HEMATOCRIT 37.8 % (31.2-41.9); MEAN CORPUSCULAR VOLUME 90.6 fL (75.5-95.3); PLATELET COUNT (AUTO) 337 K/uL (179-408)
[2022-02-27 07:02] LABS: CREATININE 0.9 mg/dL (0.6-1.3); MAGNESIUM 2.1 mg/dL (1.8-2.4); PHOSPHOROUS 3.5 mg/dL (2.5-4.9); POTASSIUM 4.2 mmol/L (3.5-5.1)
[2022-02-27 07:49] VITALS: BP 104/55
--- NOTE | 2022-02-27 08:00 | NUR ---
Received patient from nail assembly machine operator, patient was sitting on her bed, no distress, just verbalized pain in her hip and asked he routine pain meds along with the other medications. Addendum: 02/27/22 at 1237 by CESILIA KONG RN A note for the wrong patient
--- NOTE | 2022-02-27 08:00 | NUR ---
Received patient from retail shift leader, patient was laying down in her bed, no distress, no complains of pain other than in her ribs. Asked for pain medication and was administered oxycodone hcl 5 mg.
[2022-02-27] MEDS: ALBUTEROL SULFATE 2.5 MG/3 ML NEBU NEB PRN (08:58)
[2022-02-27] MEDS: ASPIRIN 81 MG TAB.CHEW PO SCH (09:00)
[2022-02-27] MEDS: NICOTINE 21 MG/24HR PATCH TD SCH (09:00)
[2022-02-27] MEDS: PREGABALIN 100 MG CAPSULE PO SCH ×3 (09:00→16:37)
[2022-02-27] MEDS: DIVALPROEX 250 MG TABLET.DR PO SCH ×2 (09:00→16:37)
[2022-02-27] MEDS: LAMOTRIGINE 100 MG TABLET PO SCH ×3 (09:00→16:37)
[2022-02-27] MEDS: ENSURE WITH FIBER 237 ML LIQUID (CHOCOLATE) PO SCH ×3 (09:07→17:24)
[2022-02-27] MEDS: REMEDY ESSENTIAL ZINC PASTE 113 GM TOP SCH ×2 (09:08→20:51)
[2022-02-27] MEDS: OXYCODONE HCL 5 MG TABLET PO PRN ×3 (09:11→23:50)
[2022-02-27 15:31] VITALS: BP 117/52
[2022-02-27] MEDS: ATORVASTATIN 20 MG TABLET PO SCH (20:37)
[2022-02-27] MEDS: LORAZEPAM 1 MG TABLET PO PRN (20:37)
[2022-02-27 21:26] VITALS: BP 105/52
[2022-02-28 04:39] VITALS: BP 122/44
--- NOTE | 2022-02-28 06:25 | NUR ---
Slept intermittently throughout the night, no significant changes noted. Ativan and Oxyr given PRN. All needs attended. Will endorse to next shift.
[2022-02-28] MEDS: NICOTINE 21 MG/24HR PATCH TD SCH (10:43)
[2022-02-28] MEDS: DIVALPROEX 250 MG TABLET.DR PO SCH ×2 (10:44→16:35)
[2022-02-28] MEDS: PREGABALIN 100 MG CAPSULE PO SCH ×3 (10:44→16:35)
[2022-02-28] MEDS: ASPIRIN 81 MG TAB.CHEW PO SCH (10:44)
[2022-02-28] MEDS: LAMOTRIGINE 100 MG TABLET PO SCH ×3 (10:44→16:35)
[2022-02-28] MEDS: REMEDY ESSENTIAL ZINC PASTE 113 GM TOP SCH ×2 (10:44→20:27)
[2022-02-28] MEDS: ENSURE WITH FIBER 237 ML LIQUID (CHOCOLATE) PO SCH ×3 (10:45→16:35)
[2022-02-28] MEDS: OXYCODONE HCL 5 MG TABLET PO PRN ×2 (10:51→16:51)
[2022-02-28 15:06] VITALS: BP 109/60
[2022-02-28 17:25] VITALS: BP 110/79
[2022-02-28 20:00] VITALS: BP_SYST 113; BP_SYST 123; BP_DIAS 68; BP_DIAS 84
[2022-02-28] MEDS: ATORVASTATIN 20 MG TABLET PO SCH (20:24)
[2022-02-28] MEDS: ALBUTEROL SULFATE 2.5 MG/3 ML NEBU NEB PRN ×2 (20:56→21:02)
[2022-03-01 04:00] VITALS: BP 124/58
--- NOTE | 2022-03-01 06:33 | NUR ---
Pt slept intermittently throughout the night, easily arousable for care. No significant changes noted. Medicated pain x1 and noted effective. All needs attended. Will endorse to next shift for continuity of care.
[2022-03-01 07:30] VITALS: BP 118/59
[2022-03-01] MEDS: NICOTINE 21 MG/24HR PATCH TD SCH (08:43)
[2022-03-01] MEDS: REMEDY ESSENTIAL ZINC PASTE 113 GM TOP SCH (08:43)
[2022-03-01] MEDS: ENSURE WITH FIBER 237 ML LIQUID (CHOCOLATE) PO SCH ×3 (08:43→16:25)
[2022-03-01] MEDS: PREGABALIN 100 MG CAPSULE PO SCH ×3 (08:43→16:25)
[2022-03-01] MEDS: ASPIRIN 81 MG TAB.CHEW PO SCH (08:43)
[2022-03-01] MEDS: LAMOTRIGINE 100 MG TABLET PO SCH ×3 (08:43→16:25)
[2022-03-01] MEDS: DIVALPROEX 250 MG TABLET.DR PO SCH ×2 (08:43→16:25)
[2022-03-01] MEDS: OXYCODONE HCL 5 MG TABLET PO PRN (12:45)
[2022-03-01 15:56] VITALS: BP 118/50
--- NOTE | 2022-03-01 17:34 | NUR ---
Discharged patient via private car at 1650H. skin intact, photo in chart. no distress noted. all needs attended. safety measures maintained. no concerns identified. Addendum: 03/01/22 at 1743 by TRISTAN HIDALGO RN Belonging list signed and with the patient. dc instructions given and noted with understanding.
== END 2022-03-01 16:50 | disposition home health service (06) | DRG 559 ==
PROVIDERS: ADMIT Physical Medicine & Rehabilitation Pain Medicine; ATTEND Physical Medicine & Rehabilitation Pain Medicine
DX: S22.41XD Multiple fractures of ribs, right side, subsequent encounter for fracture with routine healing (principal); J69.0 Pneumonitis due to inhalation of food and vomit; J96.01 Acute respiratory failure with hypoxia; G40.802 Other epilepsy, not intractable, without status epilepticus; E44.1 Mild protein-calorie malnutrition; R64 Cachexia; J44.0 Chronic obstructive pulmonary disease with (acute) lower respiratory infection; E46 Unspecified protein-calorie malnutrition; M48.54XD Collapsed vertebra, not elsewhere classified, thoracic region, subsequent encounter for fracture with routine healing; W01.0XXD Fall on same level from slipping, tripping and stumbling without subsequent striking against object, subsequent encounter; R13.10 Dysphagia, unspecified; Z88.2 Allergy status to sulfonamides; R29.6 Repeated falls; Z91.81 History of falling; I25.10 Atherosclerotic heart disease of native coronary artery without angina pectoris; Z95.1 Presence of aortocoronary bypass graft; H26.9 Unspecified cataract; I73.9 Peripheral vascular disease, unspecified; Z87.891 Personal history of nicotine dependence; E88.09 Other disorders of plasma-protein metabolism, not elsewhere classified; G62.9 Polyneuropathy, unspecified
CPT/HCPCS: 36415; 83735; 84100; 85025; 87070; 94640; 97161; 97535-GO-CO; A6209; J3490

== ENCOUNTER 2022-07-02 17:51 | Inpatient (IN) | payer MEDICARE, OTHER ==
[~2022-07-02] VITALS: Ht 172.7 cm; Wt 55.3 kg
[2022-07-02 18:37] LABS: HEMATOCRIT 44.1 % (31.2-41.9); MEAN CORPUSCULAR HEMOGLOBIN 30.7 uug (24.7-32.8); PLATELET COUNT (AUTO) 141 K/uL (179-408)
[2022-07-02 18:52] LABS: ALANINE AMINOTRANSFERASE 28 U/L (14-59); ALKALINE PHOSPHATASE 78 U/L (50-136); ASPARTATE AMINOTRANSFERASE 16 U/L (15-37); BILIRUBIN,DIRECT < 0.1 mg/dL (0.0-0.2); BILIRUBIN,TOTAL 0.4 mg/dL (0.2-1.0); CARBON DIOXIDE 29 mmol/L (21-32); CHLORIDE 103 mmol/L (98-107); CREATININE 0.8 mg/dL (0.6-1.3); GLUCOSE 120 mg/dL (74-106); TOTAL PROTEIN, SERUM 6.9 g/dL (6.4-8.2); UREA NITROGEN, BLOOD 17 mg/dL (7-18)
--- NOTE | 2022-07-02 19:00 | NUR ---
Received report from Xander TY.
--- NOTE | 2022-07-02 19:15 | NUR ---
Tried assesing pt, but pt kept evading many questions. Pt denied pain, SOB dizziness, n/v. Pt states she does not know why she is here.
[2022-07-02] MEDS ORDERED: IV NORMAL SALINE 1000 ML BAG IV ONE (19:30)
[2022-07-02 20:10] LABS: ACETAMINOPHEN < 2.0 ug/mL (10-30)
[2022-07-02] MEDS ORDERED: diphenhydrAMINE 50 MG/1 ML VIAL IM ONE (20:15)
[2022-07-02] MEDS ORDERED: HALOPERIDOL LACTATE 5 MG/1 ML VIAL IM ONE (20:15)
[2022-07-02] MEDS ORDERED: HALOPERIDOL LACTATE 5 MG/1 ML VIAL ONE (20:16)
[2022-07-02] MEDS ORDERED: diphenhydrAMINE 50 MG/1 ML VIAL ONE (20:16)
[2022-07-02 20:23] LABS: *BILIRUBIN,URIN 2+ (NEGATIVE); *BLOOD, URINE NEGATIVE (NEGATIVE); *CLARITY,URINE CLEAR (CLEAR); *COLOR,URINE YELLOW (YELLOW); *KETONES,URINE 4+ (NEGATIVE); *UROBILINOGEN,URINE 0.2 E.U./dl (NORMAL); LEUKOCYTE ESTERASE ,URINE NEGATIVE (NEGATIVE); NITRITE, URINE NEGATIVE (NEGATIVE); PH,URINE 5.5 (5.0-8.0); UGLUCOSE NEGATIVE (NEGATIVE)
[2022-07-02 20:27] LABS: ETHANOL < 3 MG/DL (0-0)
--- NOTE | 2022-07-02 20:47 | NUR ---
try bringing Pt to CT x2. Pt very agitated and uncooperative for exam RN to medicate Pt before procedure is done will call when ready time 2046
[2022-07-02] MEDS ORDERED: LORAZEPAM 2 MG/1 ML VIAL ONE (21:43)
[2022-07-02] MEDS ORDERED: LORAZEPAM 2 MG/1 ML VIAL IM ONE (21:45)
--- NOTE | 2022-07-02 23:30 | NUR ---
Called [facility] for panel call. Dr. Crawford furniture salesperson.
--- NOTE | 2022-07-03 00:15 | NUR ---
Bed # 309 given and nurse Faina RN assigned.
[2022-07-03 00:19] LABS: *AMPHETAMINE, URINE NEGATIVE (NEGATIVE); *CANNABINOID, URINE POSITIVE (NEGATIVE); *COCCAINE, URINE NEGATIVE (NEGATIVE); *OPIATE, URINE POSITIVE (NEGATIVE); *PHENCYCLIDINE SCREEN,URINE NEGATIVE (NEGATIVE)
--- NOTE | 2022-07-03 00:35 | NUR ---
Called [facility] for follow up on panel call. No call from Dr. Guzman. Dr. Cervantes now radio division captain.
[2022-07-03] MEDS ORDERED: REMEDY ESSENTIAL ZINC PASTE 113 GM TP PRN (01:00)
[2022-07-03] MEDS ORDERED: ALBUTEROL SULFATE 8 GM HFA.AER.AD IH PRN (01:00)
[2022-07-03] MEDS: DIVALPROEX 250 MG TABLET.DR PO SCH ×4 (01:00→16:16)
[2022-07-03] MEDS ORDERED: ONDANSETRON 4 MG/2 ML VIAL IV PRN (01:00)
[2022-07-03] MEDS ORDERED: MAGNESIUM HYDROXIDE 30 ML LIQUID UDC PO PRN (01:00)
[2022-07-03] MEDS ORDERED: ACETAMINOPHEN 325 MG TABLET PO PRN (01:00)
[2022-07-03] MEDS: LAMOTRIGINE 100 MG TABLET PO SCH ×5 (01:00→16:53)
--- NOTE | 2022-07-03 01:50 | NUR ---
Report given to Nori TY.
--- NOTE | 2022-07-03 03:20 | NUR ---
Pt. admitted to MED SURG rm 309, under care of Dr. Cervantes. Belongs List completed Faina TY aware of patient's arrival to unit.
[2022-07-03] MEDS: IV NS 1000 ML 1,000 ML IV PRN (03:45)
[2022-07-03] MEDS: NICOTINE 21 MG/24HR PATCH TD SCH ×2 (03:46→09:47)
[2022-07-03 04:00] VITALS: BP 141/67
--- NOTE | 2022-07-03 04:58 | NUR ---
Patient admitted to room 309 from ER per amie with diagnosis failure to thrive , AOx1, confused of mental state, room air / no sob, will continue to monitor.
[2022-07-03 05:43] LABS: HEMATOCRIT 39.5 % (31.2-41.9); MEAN CORPUSCULAR HEMOGLOBIN 31.1 uug (24.7-32.8); MEAN CORPUSCULAR VOLUME 91.1 fL (75.5-95.3); PLATELET COUNT (AUTO) 122 K/uL (179-408)
[2022-07-03 05:54] LABS: CREATININE 0.8 mg/dL (0.6-1.3); MAGNESIUM 1.4 mg/dL (1.8-2.4); POTASSIUM 3.4 mmol/L (3.5-5.1)
[2022-07-03] MEDS ORDERED: POTASSIUM PHOSPHATE MM 15 MMOL in IV NORMAL SALINE 250 ML IV ONE (08:30)
--- NOTE | 2022-07-03 09:00 | NUR ---
Pt is a/o x 1, altered, does not make sense. Son at bedside at this time, able to give medications crushed in applesauce. Pt refuses to eat anything more at this time. ST eval ordered. Comfort measures provided, call light within reach, bed alarm on. Will continue to monitor.
[2022-07-03] MEDS: ASPIRIN 81 MG TAB.CHEW PO SCH (09:47)
[2022-07-03] MEDS: MAGNESIUM SULFATE/D5W 100 ML IV SCH ×2 (09:48→11:00)
[2022-07-03] MEDS ORDERED: ATOR40TA PO (10:38)
[2022-07-03 11:50] VITALS: BP 141/51
[2022-07-03] MEDS ORDERED: ERGO2500 PO (12:14)
[2022-07-03 15:04] VITALS: BP 106/39
[2022-07-03] MEDS: CEFTRIAXONE 2 G in IV DEXTROSE 5% 100 ML IV SCH (16:14)
[2022-07-03] MEDS: VANCOMYCIN IV 750 MG in IV DEXTROSE 5% 250 ML IV SCH (16:53)
[2022-07-03] MEDS: AMPICILLIN IV 2 G in IV NORMAL SALINE 100 ML IV SCH ×2 (18:01→23:55)
--- NOTE | 2022-07-03 18:33 | NUR ---
Pt IV infiltrated, removed access and placed ice pack on arm. Ordered midline insertion due to patient fighting off and not allowing peripheral IV insertion. Attempted twice pt, pulled arm away and unable to successfully insert. CLARK Gamino paused at this time.
[2022-07-03 20:00] VITALS: BP 107/58
[2022-07-03] MEDS ORDERED: ATORVASTATIN 20 MG TABLET PO SCH ×2 (21:00)
[2022-07-03] MEDS ORDERED: OLANZAPINE 10 MG VIAL IM ONE (21:00)
[2022-07-03] MEDS: ATORVASTATIN 40 MG TABLET PO SCH (21:18)
[2022-07-04] MEDS: VANCOMYCIN IV 750 MG in IV DEXTROSE 5% 250 ML IV SCH ×3 (01:15→17:48)
[2022-07-04] MEDS: AMPICILLIN IV 2 G in IV NORMAL SALINE 100 ML IV SCH ×6 (02:00→21:53)
[2022-07-04] MEDS: CEFTRIAXONE 2 G in IV DEXTROSE 5% 100 ML IV SCH ×2 (02:59→16:40)
[2022-07-04] MEDS ORDERED: QUETIAPINE FUMARATE 25 MG TABLET PO ONE (03:00)
[2022-07-04 04:00] VITALS: BP 126/58
[2022-07-04 05:14] LABS: HEMATOCRIT 42.3 % (31.2-41.9); MEAN CORPUSCULAR HEMOGLOBIN 31.5 uug (24.7-32.8); MEAN CORPUSCULAR VOLUME 90.9 fL (75.5-95.3); PLATELET COUNT (AUTO) 116 K/uL (179-408)
[2022-07-04 06:06] LABS: BILIRUBIN,TOTAL 0.6 mg/dL (0.2-1.0); CREATININE 0.8 mg/dL (0.6-1.3); MAGNESIUM 2.2 mg/dL (1.8-2.4); POTASSIUM 2.9 mmol/L (3.5-5.1); TOTAL PROTEIN, SERUM 6.1 g/dL (6.4-8.2)
--- NOTE | 2022-07-04 06:07 | NUR ---
Red rash noted on buttocks and lower back. Message sent to Dr.Cheryl Cervantes. Rash appeared after Rocephin administered.
[2022-07-04] MEDS ORDERED: POTASSIUM CHLORIDE 20 MEQ POWDER PACKET PO ONE ×2 (10:00→13:00)
[2022-07-04] MEDS: DIVALPROEX 250 MG TABLET.DR PO SCH ×2 (10:11→16:58)
[2022-07-04] MEDS: LAMOTRIGINE 100 MG TABLET PO SCH ×3 (10:11→16:58)
[2022-07-04] MEDS: NICOTINE 21 MG/24HR PATCH TD SCH (10:11)
[2022-07-04] MEDS: ASPIRIN 81 MG TAB.CHEW PO SCH (10:11)
[2022-07-04] MEDS ORDERED: MIRALAX 17 GM POWD.PACK PO PRN (10:15)
[2022-07-04] MEDS ORDERED: POTASSIUM PHOSPHATE MM 15 MMOL in IV NORMAL SALINE 250 ML IV ONE (11:00)
[2022-07-04 11:39] VITALS: BP 114/56
[2022-07-04] MEDS: IV NS 1000 ML 1,000 ML IV PRN (12:49)
--- NOTE | 2022-07-04 12:54 | NUR ---
Clinical Social Work Note: Social work consult was requested for a patient on medsurg to assess current living situation. Patient is 67-year-old white female admitted to the hospital for failure to thrive. ALEXANDER spoke to patients son, Darek ([phone]) over the phone. Darek ([phone]) states that the patient lives with him and his family in a one-story house at [address] [place] [address]. Darek ([phone]) states the patient is independent with her ADLs and has a cane and walker at home. Patient is currently not driving. Darek ([phone]) states that he works from home and can take care of the patient. Darek ([phone]) states that the discharge plan is that he will pick his mother up and take her home to [address] [place] [address].
--- NOTE | 2022-07-04 13:47 | NUR ---
Pt is a/o 2-3 confused at times. Pt is able to communicate thoughts better today. Pt asked about specific medications and was cooperative with taking the scheduled medications. pt tolerated swallowing pills whole and refused to have them crushed. Updated family on plan of care, will obtain consent for lumbar puncture, sister stated that son Darek should be the one to consent. Unable to reach Darek on the phone. Will continue to try family, and will continue to monitor pt. No further worsening of rash noted on back or buttocks. Photos placed in chart.
--- NOTE | 2022-07-04 14:21 | NUR ---
Was able to reach Darek Prince, son, and obtain consent for lumbar puncture. Notified pt, and she was agreeable to lay still at this time. Possible procedure tomorrow am.
[2022-07-04 15:12] VITALS: BP 110/62
[2022-07-04] MEDS ORDERED: DOCUSATE SODIUM 100 MG CAPSULE PO SCH (17:00)
[2022-07-04] MEDS: POTASSIUM CHLORIDE 20 MEQ in IV NS 1000 ML 1,000 ML IV PRN (18:54)
[2022-07-04 20:00] VITALS: BP 131/62
[2022-07-04] MEDS: PREDNISOLONE EACHEYE SCH (21:53)
[2022-07-04] MEDS: BROMFENAC EACHEYE SCH (21:53)
[2022-07-04] MEDS: MOXIFLOXACIN EACHEYE SCH (21:53)
[2022-07-04] MEDS: ATORVASTATIN 40 MG TABLET PO SCH (21:54)
[2022-07-05] MEDS: VANCOMYCIN IV 750 MG in IV DEXTROSE 5% 250 ML IV SCH ×3 (01:22→17:18)
[2022-07-05] MEDS: AMPICILLIN IV 2 G in IV NORMAL SALINE 100 ML IV SCH ×6 (02:41→21:23)
[2022-07-05 04:00] VITALS: BP_SYST 126; BP_SYST 164; BP_DIAS 73; BP_DIAS 78
[2022-07-05] MEDS: CEFTRIAXONE 2 G in IV DEXTROSE 5% 100 ML IV SCH ×2 (04:50→16:19)
[2022-07-05] MEDS: POTASSIUM CHLORIDE 20 MEQ in IV NS 1000 ML 1,000 ML IV PRN (06:59)
--- NOTE | 2022-07-05 07:30 | NUR ---
During morning portables, patient unable to maintain stillness with plate under her back. Patient complained and couldn't hold still for the CXR.
[2022-07-05 08:00] LABS: CREATININE 0.6 mg/dL (0.6-1.3)
[2022-07-05] MEDS: MOXIFLOXACIN EACHEYE SCH ×3 (08:20→16:19)
[2022-07-05] MEDS: PREDNISOLONE EACHEYE SCH ×3 (08:20→16:19)
[2022-07-05] MEDS: BROMFENAC EACHEYE SCH ×3 (08:20→16:19)
[2022-07-05] MEDS: LAMOTRIGINE 100 MG TABLET PO SCH ×3 (08:21→16:23)
[2022-07-05] MEDS: ASPIRIN 81 MG TAB.CHEW PO SCH (08:21)
[2022-07-05] MEDS: DIVALPROEX 250 MG TABLET.DR PO SCH ×2 (08:21→16:23)
[2022-07-05] MEDS: NICOTINE 21 MG/24HR PATCH TD SCH (08:21)
[2022-07-05 08:52] LABS: POTASSIUM 2.7 mmol/L (3.5-5.1)
[2022-07-05] MEDS: ALBUTEROL SULFATE 2.5 MG/3 ML NEBU NEB PRN ×2 (09:17→21:32)
[2022-07-05 11:38] VITALS: BP 125/56
[2022-07-05] MEDS ORDERED: POTASSIUM PHOSPHATE MM 15 MMOL in IV NORMAL SALINE 250 ML IV ONE (16:00)
[2022-07-05 16:33] VITALS: BP 140/65
[2022-07-05] MEDS: ATORVASTATIN 40 MG TABLET PO SCH (21:06)
[2022-07-05 21:23] VITALS: BP 135/65
[2022-07-06] MEDS: POTASSIUM CHLORIDE 20 MEQ in IV NS 1000 ML 1,000 ML IV PRN ×2 (00:01→16:31)
[2022-07-06] MEDS: VANCOMYCIN IV 750 MG in IV DEXTROSE 5% 250 ML IV SCH ×3 (00:05→16:19)
[2022-07-06] MEDS: AMPICILLIN IV 2 G in IV NORMAL SALINE 100 ML IV SCH ×6 (01:28→21:01)
[2022-07-06] MEDS: ALBUTEROL SULFATE 2.5 MG/3 ML NEBU NEB PRN (03:41)
[2022-07-06] MEDS: CEFTRIAXONE 2 G in IV DEXTROSE 5% 100 ML IV SCH ×2 (03:51→15:34)
[2022-07-06 04:36] VITALS: BP 141/60
[2022-07-06 07:34] LABS: HEMATOCRIT 35.4 % (31.2-41.9); MEAN CORPUSCULAR HEMOGLOBIN 31.1 uug (24.7-32.8); MEAN CORPUSCULAR VOLUME 90.9 fL (75.5-95.3); PLATELET COUNT (AUTO) 157 K/uL (179-408)
[2022-07-06 07:55] LABS: BILIRUBIN,TOTAL 0.1 mg/dL (0.2-1.0); CREATININE 0.6 mg/dL (0.6-1.3); MAGNESIUM 1.8 mg/dL (1.8-2.4); PHOSPHOROUS 2.6 mg/dL (2.5-4.9); TOTAL PROTEIN, SERUM 4.9 g/dL (6.4-8.2)
[2022-07-06] MEDS: BROMFENAC EACHEYE SCH ×3 (08:16→17:18)
[2022-07-06] MEDS: LAMOTRIGINE 100 MG TABLET PO SCH ×3 (08:16→16:19)
[2022-07-06] MEDS: NICOTINE 21 MG/24HR PATCH TD SCH (08:16)
[2022-07-06] MEDS: PREDNISOLONE EACHEYE SCH ×3 (08:16→17:18)
[2022-07-06] MEDS: MOXIFLOXACIN EACHEYE SCH ×3 (08:16→17:18)
[2022-07-06] MEDS: ASPIRIN 81 MG TAB.CHEW PO SCH (08:16)
[2022-07-06] MEDS: DIVALPROEX 250 MG TABLET.DR PO SCH ×2 (08:16→16:19)
[2022-07-06 08:32] LABS: POTASSIUM 2.7 mmol/L (3.5-5.1)
[2022-07-06] MEDS ORDERED: ACIDOPHILUS/BULGARICUS CHEW TAB PO SCH (09:45)
[2022-07-06] MEDS ORDERED: POTASSIUM CHLORIDE 20 MEQ TAB.PRT.SR PO ONE (09:45)
[2022-07-06] MEDS: PROTEIN SUPPLEMENT (PROSTAT) 30 ML LIQUID PO SCH (09:47)
[2022-07-06] MEDS: ACIDOPHILUS/BULGARICUS CHEW TAB PO SCH ×2 (10:59→20:23)
[2022-07-06 11:14] VITALS: BP 145/67
[2022-07-06 16:47] VITALS: BP 161/75
--- NOTE | 2022-07-06 18:14 | NUR ---
Patient refused to SAM Rice and myself to be changed, asked me to remove one of her IV so she can eat her dinner. When I said she needs that IV, she started screaming that she wants it out so she can eat her food. I took one of her IVs out even though it was patent and intact. Her extremities are cold and she refused to change her sheets, clothes for a gown and blankets.
[2022-07-06 20:00] VITALS: BP 118/73
[2022-07-07] MEDS: VANCOMYCIN IV 750 MG in IV DEXTROSE 5% 250 ML IV SCH ×3 (00:02→17:35)
[2022-07-07] MEDS: POTASSIUM CHLORIDE 20 MEQ in IV NS 1000 ML 1,000 ML IV PRN (00:19)
[2022-07-07] MEDS: AMPICILLIN IV 2 G in IV NORMAL SALINE 100 ML IV SCH ×5 (01:01→18:00)
[2022-07-07] MEDS: ALBUTEROL SULFATE 2.5 MG/3 ML NEBU NEB PRN (01:12)
--- NOTE | 2022-07-07 01:56 | NUR ---
Patient received in bed, AAOx2, confused mental state, able to make needs known, call light within easy reach.
[2022-07-07] MEDS: CEFTRIAXONE 2 G in IV DEXTROSE 5% 100 ML IV SCH ×2 (03:18→16:30)
[2022-07-07 04:00] VITALS: BP 157/62
--- NOTE | 2022-07-07 04:04 | NUR ---
Patient wants change diaper but screaming, kicking and try to hitting by phone. uncooperative. confused. does not make sense. history of brain surgery d/t epilepsy.
--- NOTE | 2022-07-07 05:43 | NUR ---
IVF stopped per pt's request- pt refused further IVF; MELONY Sheldon stopped infusion and removed connection fr IVHL
[2022-07-07] MEDS ORDERED: LAMOTRIGINE 100 MG TABLET PO SCH (08:15)
[2022-07-07 08:37] LABS: HEMATOCRIT 39.7 % (31.2-41.9); MEAN CORPUSCULAR HEMOGLOBIN 30.6 uug (24.7-32.8); MEAN CORPUSCULAR VOLUME 91.2 fL (75.5-95.3); PLATELET COUNT (AUTO) 223 K/uL (179-408)
[2022-07-07 08:44] LABS: CREATININE 0.6 mg/dL (0.6-1.3); POTASSIUM 3.3 mmol/L (3.5-5.1)
[2022-07-07] MEDS: NICOTINE 21 MG/24HR PATCH TD SCH (09:00)
[2022-07-07] MEDS ORDERED: ASPIRIN EC 81 MG TABLET.DR PO SCH (09:00)
[2022-07-07] MEDS ORDERED: POTASSIUM CHLORIDE 20 MEQ TAB.PRT.SR PO SCH (09:00)
[2022-07-07] MEDS ORDERED: DIVALPROEX 250 MG TABLET.DR PO SCH (09:00)
[2022-07-07] MEDS: ACIDOPHILUS/BULGARICUS CHEW TAB PO SCH (09:29)
[2022-07-07] MEDS: DIVALPROEX 250 MG TABLET.DR PO SCH ×2 (09:29→17:33)
[2022-07-07] MEDS: BROMFENAC EACHEYE SCH ×3 (09:29→17:33)
[2022-07-07] MEDS: ASPIRIN 81 MG TAB.CHEW PO SCH (09:29)
[2022-07-07] MEDS: MOXIFLOXACIN EACHEYE SCH ×3 (09:29→17:33)
[2022-07-07] MEDS: PREDNISOLONE EACHEYE SCH ×3 (09:29→17:33)
[2022-07-07] MEDS: LAMOTRIGINE 100 MG TABLET PO SCH ×3 (09:30→17:33)
[2022-07-07] MEDS: PROTEIN SUPPLEMENT (PROSTAT) 30 ML LIQUID PO SCH (09:44)
[2022-07-07] MEDS ORDERED: POTASSIUM CHLORIDE 20 MEQ TAB.PRT.SR PO ONE (10:00)
--- NOTE | 2022-07-07 10:29 | NUR ---
Clinical Social Work Note: SW made an APS report (Intake ID [id number]) for suspicion of self-neglect and placed a copy of the report in the patients chart.
[2022-07-07 11:27] LABS: BAND % (MANUAL) 5 % (0-10); EOSINOPHILS % (MANUAL) 6 % (0-8); LYMPHOCYTES % (MANUAL) 26 % (20-40); MONOCYTES % (MANUAL) 4 % (2-10); MYELOCYTES % 2 % (0-0); NEUTROPHILS % (MANUAL) 57 % (42-75)
[2022-07-07 11:47] VITALS: BP 147/75
--- NOTE | 2022-07-07 13:00 | NUR ---
Dr. Guillaume notified regarding patient's refusal of IV medication with no new order.
--- NOTE | 2022-07-07 14:10 | NUR ---
Patient refused 10am IV ampicillin due and KCL 20mEq with IV NS. Scanned the AM dose of IV ampicillin for the 2PM dose.
[2022-07-07] MEDS ORDERED: ACID1TAB4 PO (14:24)
[2022-07-07 16:45] VITALS: BP 158/65
[2022-07-07 16:50] VITALS: BP 158/65
--- NOTE | 2022-07-07 19:15 | NUR ---
Discharge instructions provided to patient and to patient's son Darek on the phone with verbalized understanding. Discharge papers signed by and given to the patient. All belongings well accounted for and brought home with the patient. Patient is alert, not in any form of distress on room air. She denies any pain or discomfort. Attended to her needs. Assisted patient to the lobby via wheelchair. Patient picked up by Darek via private car.
== END 2022-07-07 19:10 | disposition home or self-care (01) | DRG 917 ==
LOC: ER 17:51 → MEDSURG3 07-03 00:50
PROVIDERS: ADMIT Internal Medicine; ATTEND Internal Medicine
PROC: 05H633Z Insertion of Infusion Device into Left Subclavian Vein, Percutaneous Approach (ICD-10-PCS; principal; 2022-07-03)
PROC: B547ZZA Ultrasonography of Left Subclavian Vein, Guidance (ICD-10-PCS; 2022-07-03)
DX: T40.2X1A Poisoning by other opioids, accidental (unintentional), initial encounter (principal); A41.9 Sepsis, unspecified organism; G92.8 Other toxic encephalopathy; J69.0 Pneumonitis due to inhalation of food and vomit; J96.91 Respiratory failure, unspecified with hypoxia; Z68.1 Body mass index [BMI] 19.9 or less, adult; D68.59 Other primary thrombophilia; M62.82 Rhabdomyolysis; E87.29 Other acidosis; A04.9 Bacterial intestinal infection, unspecified; R62.7 Adult failure to thrive; G40.909 Epilepsy, unspecified, not intractable, without status epilepticus; E78.5 Hyperlipidemia, unspecified; E83.39 Other disorders of phosphorus metabolism; E83.42 Hypomagnesemia; E87.6 Hypokalemia; Z20.822 Contact with and (suspected) exposure to COVID-19; Z88.2 Allergy status to sulfonamides; Z95.1 Presence of aortocoronary bypass graft; Z98.1 Arthrodesis status; R13.10 Dysphagia, unspecified; Z79.82 Long term (current) use of aspirin; G89.4 Chronic pain syndrome; Z87.891 Personal history of nicotine dependence; Z91.81 History of falling; J32.0 Chronic maxillary sinusitis; Z79.891 Long term (current) use of opiate analgesic; I25.10 Atherosclerotic heart disease of native coronary artery without angina pectoris; I25.2 Old myocardial infarction; G93.89 Other specified disorders of brain; M19.90 Unspecified osteoarthritis, unspecified site; F41.9 Anxiety disorder, unspecified; F32.A Depression, unspecified; Z74.09 Other reduced mobility; T40.711A Poisoning by cannabis, accidental (unintentional), initial encounter; Y92.009 Unspecified place in unspecified non-institutional (private) residence as the place of occurrence of the external cause
CPT/HCPCS: 36415; 51702; 70030-TC; 70450; 71045; 71250; 83605; 83735; 84100; 84443; 84484; 85025; 85730; 87040; 87086; 87400; 93005; 94640; A4663; A6209; C1758; G0378; G0480; J0290; J0696; J1200; J1630; J2060; J2358; J3370; J3475; J3480; J3490; J3535; J7040; J7050

== ENCOUNTER 2022-11-29 19:40 | Emergency (ER) | payer MEDICARE, OTHER ==
[~2022-11-29] VITALS: Ht 162.6 cm; Wt 49.9 kg
[~2022-11-29 19:40] MED LIST changes: +ACID1TAB4 PO; -ATOR20TA PO; +ERGO2500 PO; -HYDR-3972 PO; -METR500T PO
--- NOTE | 2022-11-29 20:00 | NUR ---
Patient a/o x 4. NAD noted. Family memeber at bedside.
--- NOTE | 2022-11-29 20:07 | NUR ---
X-ray at bedside.
--- NOTE | 2022-11-29 21:05 | NUR ---
NAD noted. Ambulatory with a steady gait. All belongings with patient. No changes in mental status. Patient discharged to home in stable condition. Written and verbal after care instructions given. Patient verbalizes understanding of instructions. Stressed follow up or return to ER for worsening s/s.
== END 2022-11-29 21:10 | disposition home or self-care (01) ==
LOC: ER 19:42
DX: S90.31XA Contusion of right foot, initial encounter (principal); F17.210 Nicotine dependence, cigarettes, uncomplicated; Z88.2 Allergy status to sulfonamides; Z79.82 Long term (current) use of aspirin; Z79.899 Other long term (current) drug therapy; X58.XXXA Exposure to other specified factors, initial encounter; Y93.89 Activity, other specified; Y92.89 Other specified places as the place of occurrence of the external cause; Y99.8 Other external cause status
CPT/HCPCS: 73630; A4663

== ENCOUNTER 2025-08-01 14:12 | Inpatient (IN) | payer MEDICARE, OTHER ==
[~2025-08-01] VITALS: Ht 154.9 cm; Wt 59.0 kg
[2025-08-01 10:18] VITALS: BP 141/71; TEMP 97.6
[2025-08-01 10:40] VITALS: BP 141/71; TEMP 97.6
[~2025-08-01 14:12] MED LIST changes: +DIVA-158 PO; -DIVA250T4 PO
[2025-08-01 17:12] VITALS: BP 129/53; TEMP 97.5; O2SAT 99
[2025-08-01] MEDS ORDERED: ACET-3752 PO (17:13)
[2025-08-01] MEDS ORDERED: AMOX500C2 PO (17:16)
[2025-08-01] MEDS ORDERED: ACET650S13 RC (17:16)
[2025-08-01] MEDS ORDERED: HYDR-4209 PO (18:32)
[2025-08-01] MEDS ORDERED: ATOR20TA PO (18:32)
[2025-08-01] MEDS ORDERED: DIVA250T2 PO (18:32)
[2025-08-01] MEDS ORDERED: BISA-79 PO (18:32)
[2025-08-01] MEDS ORDERED: HYDR-5156 PO (18:32)
[2025-08-01] MEDS ORDERED: HEPA500034 SUBCUT (18:32)
[2025-08-01] MEDS ORDERED: CLOP75TA33 PO (18:32)
[2025-08-01] MEDS ORDERED: IPRA3AMP23 NEB (18:32)
[2025-08-01] MEDS ORDERED: LORA0.5T48 PO (18:33)
[2025-08-01] MEDS ORDERED: LAMO100T17 PO (18:33)
[2025-08-01] MEDS ORDERED: ONDA-243 PO (18:33)
[2025-08-01] MEDS ORDERED: SUCR1ORA15 PO (18:33)
[2025-08-01] MEDS ORDERED: [UNRECOGNIZED DRUG - CODE] PO (18:33)
[2025-08-01] MEDS ORDERED: QUET25TA36 PO (18:33)
[2025-08-01] MEDS ORDERED: PANT40TA49 PO (18:33)
[2025-08-01] MEDS ORDERED: SENN8.6T19 PO (18:33)
[2025-08-01 19:30] VITALS: BP 158/69; TEMP 97.6; O2SAT 95
[2025-08-01] MEDS ORDERED: MAGNESIUM HYDROXIDE 30 ML LIQUID UDC PO PRN (19:45)
[2025-08-01] MEDS ORDERED: ACETAMINOPHEN 650 MG SUPP.RECT RC PRN (19:45)
[2025-08-01] MEDS ORDERED: BISACODYL 5 MG TABLET.DR PO PRN (19:45)
[2025-08-01] MEDS ORDERED: ONDANSETRON ODT 4 MG TAB.RAPDIS SL PRN (19:45)
[2025-08-01] MEDS ORDERED: LORAZEPAM 0.5 MG TABLET PO PRN (19:45)
[2025-08-01] MEDS: LORAZEPAM 0.5 MG TABLET PO PRN (19:56)
[2025-08-01] MEDS: HYDROCODONE/APAP 5-325MG TABLET PO PRN (19:56)
[2025-08-01] MEDS: QUETIAPINE FUMARATE 25 MG TABLET PO SCH (21:00)
[2025-08-01] MEDS: SUCRALFATE 1 G/10 ML LIQUID UDC PO SCH (21:08)
[2025-08-01] MEDS: ATORVASTATIN 20 MG TABLET PO SCH (21:09)
[2025-08-01] MEDS: HEPARIN SODIUM,PORCINE 5,000 UNITS/ML VIAL SQ SCH (21:10)
[2025-08-01] MEDS: LAMOTRIGINE 100 MG TABLET PO SCH (21:15)
[2025-08-01] MEDS ORDERED: AMOXICILLIN-CLAVUL 500-125MG TABLET ONE (21:28)
[2025-08-02] MEDS: PANTOPRAZOLE SODIUM 40 MG TABLET.DR PO SCH (06:21)
[2025-08-02 06:25] VITALS: BP 123/70; TEMP 98.6; O2SAT 95
[2025-08-02 08:00] VITALS: BP 140/61; TEMP 98.3; O2SAT 94
[2025-08-02] MEDS: CLOPIDOGREL 75 MG TABLET PO SCH (08:08)
[2025-08-02] MEDS: ASPIRIN 81 MG TAB.CHEW PO SCH (08:08)
[2025-08-02] MEDS: SUCRALFATE 1 G TABLET PO SCH (08:08)
[2025-08-02] MEDS: DIVALPROEX 250 MG TABLET.DR PO SCH (08:08)
[2025-08-02] MEDS: SENNOSIDES 1 TABLET PO SCH (08:08)
[2025-08-02] MEDS: HYDROCODONE/APAP 5-325MG TABLET PO PRN (12:04)
[2025-08-02 16:01] VITALS: BP 130/52; TEMP 98; O2SAT 95
[2025-08-02 19:50] VITALS: BP 150/60; TEMP 97.6; O2SAT 98
[2025-08-02] MEDS ORDERED: LIDOCAINE HCL 1% 20 ML VIAL IJ PRN (23:15)
[2025-08-02] MEDS: TRIAMCINOLONE ACETONIDE 40 MG/1 ML VIAL IM ONE (23:15)
[2025-08-03] MEDS ORDERED: TRIAMCINOLONE ACETONIDE 40 MG/1 ML VIAL IM ONE ×2 (07:00→17:00)
[2025-08-03 07:56] VITALS: BP 117/60; TEMP 98.2; O2SAT 92
[2025-08-03] MEDS: LIDOCAINE HCL 1% 20 ML VIAL IJ ONE (17:01)
[2025-08-03] MEDS: TRIAMCINOLONE ACETONIDE 40 MG/1 ML VIAL IJ ONE (17:02)
[2025-08-03 20:00] VITALS: BP 136/54; TEMP 97.7; O2SAT 95
[2025-08-04] VITALS (7 sets, daily range): BP systolic 123–145; BP diastolic 53–64; TEMP 97.5–98; O2SAT 93–96
[2025-08-04] MEDS ORDERED: ALBUTEROL SULFATE 2.5 MG/ 0.5 ML NEBU NEB PRN (16:15)
[2025-08-04] MEDS ORDERED: ALBUTEROL SULFATE 8 GM HFA.AER.AD IH PRN (16:15)
[2025-08-04] MEDS: IPRATROPIUM BROMIDE 0.5 MG/2.5 ML NEBU NEB PRN (16:28)
[2025-08-04] MEDS: ALBUTEROL SULFATE 2.5 MG/ 0.5 ML NEBU NEB PRN (16:28)
[2025-08-04] MEDS: ENSURE CLEAR 240 ML LIQUID (MIX BERRY) PO SCH (16:53)
[2025-08-04] MEDS: HEPARIN SODIUM,PORCINE 5,000 UNITS/ML VIAL SQ SCH (21:22)
[2025-08-05 06:00] VITALS: BP 117/42; TEMP 97.9; O2SAT 95
[2025-08-05 08:26] LABS: PLATELET COUNT (AUTO) 181 K/uL (179-408); RED BLOOD CELL COUNT(AUTO) 5.07 MIL/uL (3.63-4.92); RED CELL DISTRIBUTION WIDTH 20.0 % (12.3-17.7); WHITE BLOOD COUNT (AUTO) 5.9 K/uL (3.8-11.8)
[2025-08-05 08:54] LABS: CREATININE 0.7 mg/dL (0.6-1.3); SODIUM SERUM 144.0 mmol/L (136-145); UREA NITROGEN, BLOOD 18.0 mg/dL (7-18)
[2025-08-05 09:27] VITALS: BP 141/59; TEMP 98; O2SAT 97
[2025-08-05 17:51] VITALS: BP 144/60; TEMP 98.1; O2SAT 96
[2025-08-05] MEDS: ACETAMINOPHEN 325 MG TABLET PO PRN (20:21)
[2025-08-05 20:36] VITALS: BP 142/61; TEMP 97.4; O2SAT 98
[2025-08-06 06:49] VITALS: BP 117/57; TEMP 98.7; O2SAT 96
[2025-08-06 07:52] VITALS: BP 116/56; TEMP 98.2; O2SAT 97
[2025-08-06 16:00] VITALS: BP 120/53; TEMP 98.2; O2SAT 98
[2025-08-06 19:00] VITALS: BP 165/77; TEMP 100.9; O2SAT 98
[2025-08-06 22:03] VITALS: BP 144/65; TEMP 98; O2SAT 98
[2025-08-07 06:38] VITALS: BP 139/55; TEMP 97.9; O2SAT 97
[2025-08-07 08:00] VITALS: BP 184/58; TEMP 97.9; O2SAT 98
[2025-08-07 14:50] VITALS: O2SAT 94
[2025-08-07 15:00] VITALS: O2SAT 96
[2025-08-07 17:00] VITALS: BP 142/55; TEMP 97.9; O2SAT 97
[2025-08-07 19:40] VITALS: BP 148/63; TEMP 97.6; O2SAT 98
[2025-08-08 06:52] VITALS: BP 117/46; TEMP 97.7; O2SAT 98
[2025-08-08 08:00] VITALS: BP 122/49; TEMP 98.2; O2SAT 99
[2025-08-08 16:01] VITALS: BP 136/51; TEMP 98; O2SAT 97
[2025-08-08 21:16] VITALS: BP 145/53; TEMP 97.3; O2SAT 98
[2025-08-09 06:35] VITALS: BP 126/54; TEMP 97.7; O2SAT 95
[2025-08-09 08:02] VITALS: BP 142/62; TEMP 98; O2SAT 100
[2025-08-09] MEDS: KETOROLAC TROMETHAMINE 30 MG INJ IM ONE (13:03)
[2025-08-09] MEDS: HYDROMORPHONE 1 MG/1 ML DISP.SYRIN IM ONE (13:05)
[2025-08-09 16:09] VITALS: BP 121/48; TEMP 97.7; O2SAT 97
[2025-08-09 16:38] VITALS: O2SAT 96
[2025-08-09] MEDS ORDERED: OXYCODONE HCL 5 MG TABLET PO PRN (19:00)
[2025-08-09 20:00] VITALS: BP 129/59; TEMP 97.4; O2SAT 96
[2025-08-10 08:20] VITALS: BP 123/60; TEMP 98.3; O2SAT 96
[2025-08-10 16:08] VITALS: BP 161/63; TEMP 97.8; O2SAT 98
== END 2025-08-10 17:37 | disposition home health service (06) | DRG 689 ==
PROVIDERS: ADMIT Physical Medicine & Rehabilitation Pain Medicine; ATTEND Physical Medicine & Rehabilitation Pain Medicine
DX: N39.0 Urinary tract infection, site not specified (principal); G93.41 Metabolic encephalopathy; B96.89 Other specified bacterial agents as the cause of diseases classified elsewhere; G40.909 Epilepsy, unspecified, not intractable, without status epilepticus; I73.9 Peripheral vascular disease, unspecified; I25.10 Atherosclerotic heart disease of native coronary artery without angina pectoris; Z95.1 Presence of aortocoronary bypass graft; Z88.2 Allergy status to sulfonamides; R53.1 Weakness; M25.511 Pain in right shoulder; R06.2 Wheezing
CPT/HCPCS: 36415; 71045; 85025; 94640; 94664; 94760; 97535-GO-CO; J1171; J1644; J1885; J3301; J3490; J3590